=== PATIENT | male | born 1985 | race Caucasian/White ===

== ENCOUNTER → 2019-08-15 | Outpatient (CLI) | payer BC ==
--- NOTE | 2019-08-15 16:38 | KCIC ---
EXAM: SCROTAL SONOGRAM WITH DOPPLER. HISTORY: Right testicular palpable focus. Left scrotal swelling after injury. COMPARISON: None. FINDINGS: Grayscale and Doppler analysis of the scrotum and contents was performed. The right testicle measures 3.8 x 2.7 x 2.0 cm. A heterogeneous hypoechoic mass centrally in the right testicle demonstrates scattered calcifications along its periphery. It measures 7 x 6 x 6 mm. There is flow along its periphery. Also within the interpolar region, a calcific nodule is adjacent to the capsule and measures 5 x 2 mm. An uncalcified component of a soft tissue mass is not seen. A cystic lesion along the epididymal tail measures 12 x 11 x 8 mm and likely corresponds with the palpable focus. There are some internal echoes but no clear internal perfusion. Another small cyst in the epididymal head measures 5 mm. An epididymal appendage is incidentally noted. Internal flow is normal. There is no hydrocele. The left testicle measures 5.0 x 3.7 x 3.3 cm. The parenchyma is homogeneous without focal lesions. There is a heterogeneous hypoechoic region within the epididymal body/tail which span 2.6 x 1.2 cm. There is flow along the periphery of this region. The majority of it is not assessed on Doppler. Small left epididymal cysts measure 6 mm and 3 mm, respectively. An epididymal appendage is incidentally noted. Internal flow is normal. There is a small hydrocele. IMPRESSION: 1. A 7 mm heterogeneous hypoechoic mass centrally within the right testicle is nonspecific but concerning for a neoplasm such as a seminoma. Another nodule along the periphery of the right testicle appears densely calcified and is indeterminate. Urologic consultation is recommended. 2. The palpable focus on the right likely corresponds with a 1.2 cm cyst along the epididymal tail. 3. A hypoechoic 2.6 cm region within the left epididymal body/tail may reflect a hematoma or region of edema in the setting of trauma. Follow-up could be performed if there is persistent concern. Electronically signed by: Roger Cano MD (08/15/2019 4:35 PM) [facility]
== END | disposition home or self-care (01) ==
LOC: KCIC US 12:00
PROVIDERS: ATTEND Nurse Practitioner Family
DX: N50.3 Cyst of epididymis (principal); N43.2 Other hydrocele; N50.89 Other specified disorders of the male genital organs; N49.2 Inflammatory disorders of scrotum
CPT/HCPCS: 76870